=== PATIENT | female | born 1950 | race Caucasian/White ===

== ENCOUNTER → 2016-07-06 | Outpatient (REF) | payer MEDICARE, OTHER | LOC: M SFHCWAGY 13:29 | PROVIDERS: ATTEND Nurse Practitioner Family | DX: Z12.4 Encounter for screening for malignant neoplasm of cervix (principal); R87.610 Atypical squamous cells of undetermined significance on cytologic smear of cervix (ASC-US) | CPT/HCPCS: 87624; G0123 ==

== ENCOUNTER → 2016-07-06 | Outpatient (CLI) | payer MEDICARE, OTHER ==
--- NOTE | 2016-07-06 14:45 | REPMRS ---
Patient History The patient states she had a clinical breast exam in 06/2016. Patient is postmenopausal. Family history of colorectal cancer in sister at age 50 or over and prostate cancer in 4 brothers at age 50 or over. Taking estrogen for 10 years. Digital Woman Screen Mammo: July 06, 2016 - Exam #: [id number] Bilateral CC and MLO view(s) were taken. Technologist: Margie Conteh, Technologist Prior study comparison: July 02, 2015, digital woman screen mammo performed at [facility]. May 29, 2014, digital woman screen mammo performed at [facility]. May 05, 2013, digital woman screen mammo performed at [facility]. FINDINGS: There are scattered fibroglandular densities. There has been no change in the appearance of the mammogram from the prior studies. There is a mild amount of scattered fibroglandular density which is fairly symmetric. There is no interval development of dominant mass, architectural distortion, or clustered microcalcification suggestive of malignancy. ASSESSMENT: BI-RADS/ACR category 1 mammogram. Negative. Recommendation Routine screening mammogram in 1 year (for women over age 40). This mammogram was interpreted with the aid of an FDA-approved computer-aided dectection system. Electronically Signed By: Zaki Foster MD 07/06/16 0516
== END ==
LOC: M WHC 13:06
PROVIDERS: ATTEND Nurse Practitioner Family
DX: Z01.419 Encounter for gynecological examination (general) (routine) without abnormal findings (principal); Z12.31 Encounter for screening mammogram for malignant neoplasm of breast; Z78.0 Asymptomatic menopausal state; Z79.810 Long term (current) use of selective estrogen receptor modulators (SERMs); Z12.12 Encounter for screening for malignant neoplasm of rectum; Z80.0 Family history of malignant neoplasm of digestive organs; Z80.42 Family history of malignant neoplasm of prostate
CPT/HCPCS: 82270; 87624; G0101; G0123; G0202

== ENCOUNTER → 2016-07-28 | Outpatient (REF) | payer MEDICARE, OTHER ==
[2016-07-28 12:18] LABS: ALKALINE PHOSPHATASE 50 U/L (45-117); ALT/SGPT 30 U/L (12-78); ANION GAP 6 MEQ/L (8-16); AST/SGOT 19 U/L (15-37); BILIRUBIN,TOTAL 0.9 MG/DL (0.2-1.0); BLOOD UREA NITROGEN 17 MG/DL (7-18); CALCIUM LEVEL 9.5 MG/DL (8.8-10.2); CARBON DIOXIDE LEVEL 30 MEQ/L (21-32); CHLORIDE LEVEL 107 MEQ/L (98-107); CHOLESTEROL LEVEL 280 MG/DL (<200); CREATININE FOR GFR 0.87 MG/DL (0.55-1.02); GLOMERULAR FILTRATION RATE > 60.0 (>45); GLUCOSE, FASTING 101 MG/DL (80-110); POTASSIUM SERUM 4.7 MEQ/L (3.5-5.1); SODIUM LEVEL 143 MEQ/L (136-145); TOTAL PROTEIN 6.5 GM/DL (6.4-8.2); TRIGLYCERIDES LEVEL 166 MG/DL (<150)
== END ==
LOC: M SFHCPLAZ 08:40
PROVIDERS: ATTEND Internal Medicine
DX: Z00.00 Encounter for general adult medical examination without abnormal findings (principal); Z79.899 Other long term (current) drug therapy; E78.00 Pure hypercholesterolemia, unspecified

== ENCOUNTER → 2017-03-22 | Outpatient (REF) | payer MEDICARE, OTHER ==
[2017-03-22 11:38] LABS: MEAN CORPUSCULAR HEMOGLOBIN 33.4 pg (27.0-33.0); MEAN CORPUSCULAR HGB CONC 32.8 g/dl (32.0-36.5); MEAN CORPUSCULAR VOLUME 101.8 fl (80.0-96.0); RED CELL DISTRIBUTION WIDTH 12.3 % (11.5-14.5); WHITE BLOOD COUNT 3.9 10^3/uL (4.0-10.0)
[2017-03-22 12:12] LABS: ALBUMIN 4.1 GM/DL (3.2-5.2); ALBUMIN/GLOBULIN RATIO 1.41 (1.00-1.93); ALKALINE PHOSPHATASE 55 U/L (45-117); ALT/SGPT 36 U/L (12-78); ANION GAP 4 MEQ/L (8-16); AST/SGOT 25 U/L (15-37); BILIRUBIN,TOTAL 1.1 MG/DL (0.2-1.0); BLOOD UREA NITROGEN 15 MG/DL (7-18); CALCIUM LEVEL 8.9 MG/DL (8.8-10.2); CARBON DIOXIDE LEVEL 32 MEQ/L (21-32); CHLORIDE LEVEL 105 MEQ/L (98-107); CHOLESTEROL LEVEL 176 MG/DL (<200); CREATININE FOR GFR 0.82 MG/DL (0.55-1.02); GLOMERULAR FILTRATION RATE > 60.0 (>45); GLUCOSE, FASTING 90 MG/DL (80-110); POTASSIUM SERUM 4.2 MEQ/L (3.5-5.1); SODIUM LEVEL 141 MEQ/L (136-145); TRIGLYCERIDES LEVEL 111 MG/DL (<150)
== END ==
LOC: M SFHCPLAZ 08:02
PROVIDERS: ATTEND Internal Medicine
DX: E78.00 Pure hypercholesterolemia, unspecified (principal)

== ENCOUNTER → 2017-07-07 | Outpatient (CLI) | payer MEDICARE, OTHER | LOC: M WHC 12:54 | DX: Z12.31 Encounter for screening mammogram for malignant neoplasm of breast (principal); Z01.419 Encounter for gynecological examination (general) (routine) without abnormal findings (principal); Z78.0 Asymptomatic menopausal state; Z92.23 Personal history of estrogen therapy; Z12.12 Encounter for screening for malignant neoplasm of rectum | CPT/HCPCS: 77067 ==

== ENCOUNTER → 2017-11-09 | Outpatient (CLI) | payer MEDICARE, OTHER | LOC: M RAD 10:50 | DX: I87.303 Chronic venous hypertension (idiopathic) without complications of bilateral lower extremity (principal); M79.604 Pain in right leg; M79.605 Pain in left leg | CPT/HCPCS: 93970 ==

== ENCOUNTER → 2018-02-23 | Outpatient (REF) | payer MEDICARE, OTHER | LOC: M SFHCWAGY 15:33 | DX: R31.29 Other microscopic hematuria (principal) | CPT/HCPCS: 87086 ==

== ENCOUNTER → 2018-02-28 | Outpatient (CLI) | payer MEDICARE, OTHER | LOC: M WHC 14:15 | DX: N95.0 Postmenopausal bleeding (principal) | CPT/HCPCS: 76830 ==

== ENCOUNTER → 2018-03-01 | Outpatient (CLI) | payer MEDICARE, OTHER | LOC: M RAD 10:21 | DX: I87.2 Venous insufficiency (chronic) (peripheral) (principal) | CPT/HCPCS: 93971 ==

== ENCOUNTER → 2018-03-22 | Outpatient (REF) | payer MEDICARE, OTHER ==
[2018-03-22 12:59] LABS: ALBUMIN 3.9 GM/DL (3.2-5.2); ALKALINE PHOSPHATASE 57 U/L (45-117); ALT/SGPT 32 U/L (12-78); ANION GAP 8 MEQ/L (8-16); AST/SGOT 20 U/L (7-37); BILIRUBIN,TOTAL 0.6 MG/DL (0.2-1.0); BLOOD UREA NITROGEN 15 MG/DL (7-18); CALCIUM LEVEL 8.9 MG/DL (8.8-10.2); CARBON DIOXIDE LEVEL 27 MEQ/L (21-32); CHLORIDE LEVEL 106 MEQ/L (98-107); CHOLESTEROL LEVEL 195 MG/DL (<200); CREATININE FOR GFR 0.78 MG/DL (0.55-1.30); GLOMERULAR FILTRATION RATE > 60.0 (>45); GLUCOSE, FASTING 91 MG/DL (70-100); HDL CHOLESTEROL 67 MG/DL (>40); LDL CHOLESTEROL 103 MG/DL (<100); NON-HDL-C 128 MG/DL; POTASSIUM SERUM 4.4 MEQ/L (3.5-5.1); SODIUM LEVEL 141 MEQ/L (136-145); TOTAL PROTEIN 6.9 GM/DL (6.4-8.2); TRIGLYCERIDES LEVEL 123 MG/DL (<150)
== END ==
LOC: M SFHCPLAZ 09:05
DX: E78.00 Pure hypercholesterolemia, unspecified (principal)
CPT/HCPCS: 80053

== ENCOUNTER 2018-03-23 11:33 | Day surgery (SDC) | payer MEDICARE, OTHER ==
[~2018-03-23 11:33] MED LIST: KETOROLAC 60 MG/2 ML VIAL (J1885) As Ordered; LIDOCAINE 2% INJ 100 MG/5 ML SDV (FOR ANES.) As Ordered; MIDAZOLAM INJ 2 MG/2 ML VIAL (J2250) As Ordered; ONDANSETRON 4MG/2ML VIAL (J2405) As Ordered; PROPOFOL 200 MG/20 ML VIAL As Ordered; dexameTHASONE 4 MG/ML 1ML VIAL (J1100) As Ordered; fentaNYL 100 MCG/2 ML INJECTION (J3010) As Ordered
[2018-03-23 11:54] LABS: HEMATOCRIT 43.1 % (36.0-47.0); HEMOGLOBIN 14.4 g/dl (12.0-15.5); MEAN CORPUSCULAR HEMOGLOBIN 34.2 pg (27.0-33.0); MEAN CORPUSCULAR HGB CONC 33.4 g/dl (32.0-36.5); MEAN CORPUSCULAR VOLUME 102.4 fl (80.0-96.0); PLATELET COUNT, AUTOMATED 241 10^3/uL (150-450); RED BLOOD COUNT 4.21 10^6/uL (4.00-5.40); RED CELL DISTRIBUTION WIDTH 12.4 % (11.5-14.5); WHITE BLOOD COUNT 4.9 10^3/uL (4.0-10.0)
[2018-03-23] MEDS ORDERED: LIDOCAINE 1% MDV 20ML VIAL SQ (12:00)
[2018-03-23] MEDS ORDERED: LR 1,000 ML IV ×3 (12:00→15:00)
[2018-03-23] MEDS ORDERED: SILVER NITRATE APPLICATOR As Ordered (13:11)
[2018-03-23] MEDS ORDERED: PHENYLephrine HCL 500 MCG/5 ML (100MCG/ML) SYRINGE (J2370) As Ordered (14:00)
[2018-03-23] MEDS ORDERED: PERCOCET 5MG/325MG TAB PO (15:00)
[2018-03-23] MEDS ORDERED: ONDANSETRON 4MG/2ML VIAL (J2405) IV (15:00)
[2018-03-23] MEDS ORDERED: fentaNYL 100 MCG/2 ML INJECTION (J3010) IV (15:00)
== END 2018-03-23 15:55 | disposition home or self-care (01) ==
LOC: M SDC 11:33
DX: C54.1 Malignant neoplasm of endometrium (principal); N95.0 Postmenopausal bleeding; N85.8 Other specified noninflammatory disorders of uterus; E78.5 Hyperlipidemia, unspecified; F41.9 Anxiety disorder, unspecified; M54.9 Dorsalgia, unspecified; Z87.891 Personal history of nicotine dependence; Z78.0 Asymptomatic menopausal state; Z79.899 Other long term (current) drug therapy
CPT/HCPCS: 58558

== ENCOUNTER → 2018-04-13 | Outpatient (REF) | payer MEDICARE, OTHER | LOC: M LAB REF 04-14 18:30 | DX: J02.9 Acute pharyngitis, unspecified (principal) | CPT/HCPCS: 87070 ==

== ENCOUNTER → 2018-06-28 | Outpatient (REF) | payer MEDICARE, OTHER ==
[~2018-06-28] MED LIST changes: +ATOR1TAB21 PO; +COQ1200C2 PO; +GLUC1CAP10 PO; -KETOROLAC 60 MG/2 ML VIAL (J1885) As Ordered; -LIDOCAINE 2% INJ 100 MG/5 ML SDV (FOR ANES.) As Ordered; +MAGN250T7 PO; -MIDAZOLAM INJ 2 MG/2 ML VIAL (J2250) As Ordered; +MULT1TAB10 PO; +OMEG1CAP16 PO; -ONDANSETRON 4MG/2ML VIAL (J2405) As Ordered; -PROPOFOL 200 MG/20 ML VIAL As Ordered; +VAGI10TA; -dexameTHASONE 4 MG/ML 1ML VIAL (J1100) As Ordered; -fentaNYL 100 MCG/2 ML INJECTION (J3010) As Ordered
[2018-06-28 20:47] LABS: APPEARANCE, URINE CLEAR (CLEAR); BACTERIA, URINE AUTO 1+ (NEGATIVE); BILIRUBIN, URINE AUTO NEGATIVE (NEGATIVE); BLOOD, URINE BLOOD NEGATIVE (NEGATIVE); COLOR, URINE STRAW (YELLOW); GLUCOSE, URINE (UA) AUTO NEGATIVE (NEGATIVE); KETONE, URINE AUTO NEGATIVE (NEGATIVE); LEUKOCYTE ESTERASE, URINE AUTO NEGATIVE (NEGATIVE); NITRITE, URINE AUTO NEGATIVE (NEGATIVE); PROTEIN, URINE AUTO NEGATIVE (NEGATIVE); RBC, URINE AUTO 0 /HPF (0-3); SPECIFIC GRAVITY URINE AUTO 1.008 (1.002-1.035); SQUAMOUS EPITHELIAL CELL UR AU 0 /HPF (0-6); UROBILINOGEN, URINE AUTO 0.2 mg/dL (0.0-2.0); WBC, URINE AUTO 0 /HPF (0-3)
== END ==
LOC: M LAB REF 16:49
PROVIDERS: ATTEND Physician Assistant
DX: N39.0 Urinary tract infection, site not specified (principal)

== ENCOUNTER → 2018-07-08 | Outpatient (CLI) | payer MEDICARE, OTHER ==
--- NOTE | 2018-07-08 17:16 | REPMRS ---
Patient History The patient states she had a clinical breast exam in 06/2018. Patient is postmenopausal and has history of endometrial cancer at age 67. Family history of prostate cancer at age 50 or over in brother, prostate cancer at age 50 or over in brother, prostate cancer at age 50 or over in brother, prostate cancer at age 50 or over in brother, colorectal cancer at age 82 in sister, breast cancer at age 50 or over in paternal cousin. Took estrogen for 10 years beginning at age 55. Digital Woman Screen Mammo: July 08, 2018 - Exam #: [id number] Bilateral CC and MLO view(s) were taken. Technologist: Lanny Hopkins Technologist Prior study comparison: July 07, 2017, digital woman screen mammo performed at [facility]. July 06, 2016, digital woman screen mammo performed at [facility]. July 02, 2015, digital woman screen mammo performed at [facility]. FINDINGS: There are scattered fibroglandular densities. There has been no change in the appearance of the mammogram from the prior studies. There is a mild amount of scattered fibroglandular density which is fairly symmetric. There is no interval development of dominant mass, architectural distortion, or clustered microcalcification suggestive of malignancy. 3-D tomosynthesis shows no additional findings. Assessment: BI-RADS/ACR category 1 mammogram. Negative. Recommendation Routine screening mammogram of both breasts in 1 year (for women over age 40). This patient's Lifetime Breast Cancer RIsk is estimated at 5.6 %. This mammogram was interpreted with the aid of an FDA-approved computer-aided dectection system. Electronically Signed By: Zaki Foster MD 07/08/18 5994
== END ==
LOC: M WHC 13:23
PROVIDERS: ATTEND Nurse Practitioner Family
DX: Z12.31 Encounter for screening mammogram for malignant neoplasm of breast (principal); Z78.0 Asymptomatic menopausal state; Z80.0 Family history of malignant neoplasm of digestive organs; Z92.23 Personal history of estrogen therapy; Z91.89 Other specified personal risk factors, not elsewhere classified; N95.2 Postmenopausal atrophic vaginitis; Z90.710 Acquired absence of both cervix and uterus; Z12.12 Encounter for screening for malignant neoplasm of rectum
CPT/HCPCS: 77063; 77067; 82270; G0101; G0123

== ENCOUNTER → 2018-07-08 | Outpatient (REF) | payer MEDICARE, OTHER | LOC: M SFHCWAGY 13:39 | PROVIDERS: ATTEND Nurse Practitioner Family | DX: Z91.89 Other specified personal risk factors, not elsewhere classified (principal); N95.2 Postmenopausal atrophic vaginitis; Z90.710 Acquired absence of both cervix and uterus; Z12.12 Encounter for screening for malignant neoplasm of rectum ==

== ENCOUNTER → 2019-05-23 | Outpatient (CLI) | payer MEDICARE, OTHER ==
[2019-05-23 14:52] LABS: HEMATOCRIT 45.2 % (36.0-47.0); HEMOGLOBIN 14.8 g/dl (12.0-15.5); MEAN CORPUSCULAR HEMOGLOBIN 32.7 pg (27.0-33.0); MEAN CORPUSCULAR HGB CONC 32.7 g/dl (32.0-36.5); PLATELET COUNT, AUTOMATED 248 10^3/uL (150-450); RED BLOOD COUNT 4.52 10^6/uL (4.00-5.40); WHITE BLOOD COUNT 4.1 10^3/uL (4.0-10.0)
[2019-05-23 14:58] LABS: ALBUMIN 4.2 GM/DL (3.2-5.2); ALT/SGPT 32 U/L (12-78); BILIRUBIN,TOTAL 0.8 MG/DL (0.2-1.0); BLOOD UREA NITROGEN 13 MG/DL (7-18); CALCIUM LEVEL 9.5 MG/DL (8.8-10.2); CARBON DIOXIDE LEVEL 29 MEQ/L (21-32); CHLORIDE LEVEL 107 MEQ/L (98-107); CHOLESTEROL LEVEL 194 MG/DL (<200); CREATININE FOR GFR 0.92 MG/DL (0.55-1.30); GLOMERULAR FILTRATION RATE > 60.0 (>39); GLUCOSE, FASTING 98 MG/DL (70-100); HDL CHOLESTEROL 61 MG/DL (>40); LDL CHOLESTEROL 101 MG/DL (<100); NON-HDL-C 133 MG/DL; POTASSIUM SERUM 4.3 MEQ/L (3.5-5.1); SODIUM LEVEL 140 MEQ/L (136-145); TOTAL PROTEIN 7.2 GM/DL (6.4-8.2); TRIGLYCERIDES LEVEL 159 MG/DL (<150)
== END ==
LOC: M PLALAB 09:47
PROVIDERS: ATTEND Internal Medicine
DX: E78.00 Pure hypercholesterolemia, unspecified (principal); C54.1 Malignant neoplasm of endometrium

== ENCOUNTER → 2019-08-01 | Outpatient (REF) | payer MEDICARE, OTHER | LOC: M SFHCWAGY 12:39 | PROVIDERS: ATTEND Nurse Practitioner Family | DX: Z91.89 Other specified personal risk factors, not elsewhere classified (principal); Z08 Encounter for follow-up examination after completed treatment for malignant neoplasm; Z12.12 Encounter for screening for malignant neoplasm of rectum | CPT/HCPCS: 82270; G0101; G0123 ==

== ENCOUNTER → 2019-08-24 | Outpatient (CLI) | payer MEDICARE, OTHER ==
--- NOTE | 2019-08-24 14:57 | REPMRS ---
Patient History The patient states she had a clinical breast exam in June 2019. Family history of prostate cancer at age 50 or over in brother, prostate cancer at age 50 or over in brother, prostate cancer at age 50 or over in brother, prostate cancer at age 50 or over in brother, colorectal cancer at age 82 in sister, breast cancer at age 50 or over in paternal cousin. Took estrogen for 10 years beginning at age 55. Digital Woman Screen Mammo: August 24, 2019 - Exam #: [id number] Bilateral CC and MLO view(s) were taken. Technologist: Daly Hoffman Technologist Prior study comparison: July 08, 2018, bilateral digital woman screen mammo performed at [facility]. July 07, 2017, digital woman screen mammo performed at [facility]. July 06, 2016, digital woman screen mammo performed at [facility]. FINDINGS: There are scattered fibroglandular densities. There has been no change in the appearance of the mammogram from the prior studies. There is a mild amount of scattered fibroglandular density which is fairly symmetric. There is no interval development of dominant mass, architectural distortion, or grouped microcalcification suggestive of malignancy. 3-D tomosynthesis shows no additional findings. Assessment: BI-RADS/ACR category 1 mammogram. Negative Mammogram. Recommendation Routine screening mammogram of both breasts in 1 year (for women over age 40). This patient's Lifetime Breast Cancer Risk is estimated at 5.2 %. This mammogram was interpreted with the aid of an FDA-approved computer-aided dectection system. Electronically Signed By: Zaki Foster MD 08/24/19 3149
== END ==
LOC: M WHC 10:48
PROVIDERS: ATTEND Nurse Practitioner Family
DX: Z12.31 Encounter for screening mammogram for malignant neoplasm of breast (principal); Z80.3 Family history of malignant neoplasm of breast; Z80.0 Family history of malignant neoplasm of digestive organs; Z80.42 Family history of malignant neoplasm of prostate

== ENCOUNTER → 2020-05-27 | Outpatient (CLI) | payer SELFPAY | LOC: M LABSMTC 18:25 | PROVIDERS: ATTEND Pediatrics | DX: Z11.59 Encounter for screening for other viral diseases (principal) ==

== ENCOUNTER → 2020-06-19 | Outpatient (REF) | payer MEDICARE, OTHER ==
[2020-06-19 13:15] LABS: HEMATOCRIT 45.1 % (36.0-47.0); HEMOGLOBIN 14.9 g/dl (12.0-15.5); MEAN CORPUSCULAR HEMOGLOBIN 33.3 pg (27.0-33.0); MEAN CORPUSCULAR VOLUME 100.9 fl (80.0-96.0); PLATELET COUNT, AUTOMATED 217 10^3/uL (150-450); RED BLOOD COUNT 4.47 10^6/uL (4.00-5.40); WHITE BLOOD COUNT 4.4 10^3/uL (4.0-10.0)
[2020-06-19 13:49] LABS: ALBUMIN 4.1 GM/DL (3.2-5.2); ALT/SGPT 37 U/L (12-78); BLOOD UREA NITROGEN 18 MG/DL (7-18); CALCIUM LEVEL 9.3 MG/DL (8.8-10.2); CARBON DIOXIDE LEVEL 28 MEQ/L (21-32); CHLORIDE LEVEL 106 MEQ/L (98-107); CHOLESTEROL LEVEL 213 MG/DL (<200); CREATININE FOR GFR 0.89 MG/DL (0.55-1.30); GLOMERULAR FILTRATION RATE > 60.0 (>39); GLUCOSE, FASTING 101 MG/DL (70-100); HDL CHOLESTEROL 63 MG/DL (>40); LDL CHOLESTEROL 127 MG/DL (<100); NON-HDL-C 150 MG/DL; POTASSIUM SERUM 4.7 MEQ/L (3.5-5.1); SODIUM LEVEL 138 MEQ/L (136-145); TOTAL PROTEIN 6.8 GM/DL (6.4-8.2); TRIGLYCERIDES LEVEL 114 MG/DL (<150)
== END ==
LOC: M PLALAB 10:47
PROVIDERS: ATTEND Internal Medicine
DX: E78.00 Pure hypercholesterolemia, unspecified (principal); Z85.42 Personal history of malignant neoplasm of other parts of uterus
CPT/HCPCS: 36415; 80053; 80061; 85027; G0463

== ENCOUNTER → 2020-08-26 | Outpatient (CLI) | payer MEDICARE, OTHER ==
--- NOTE | 2020-08-26 13:15 | REPMRS ---
Patient History The patient states she had a clinical breast exam in August 2020. Family history of prostate cancer at age 50 or over in brother, prostate cancer at age 50 or over in brother, prostate cancer at age 50 or over in brother, prostate cancer at age 50 or over in brother, colorectal cancer at age 82 in sister, breast cancer at age 50 or over in paternal cousin. Took estrogen for 10 years beginning at age 55. 3D TOMOSYNTHESIS WAS PERFORMED. [facility] lifetime risk for breast cancer is 4.8%. Volpara breast density b. Digital Woman Screen Mammo: August 26, 2020 - Exam #: [id number] Bilateral CC and MLO view(s) were taken. Technologist: Karlo Franciscoologist Prior study comparison: August 24, 2019, bilateral digital woman screen mammo performed at [facility]. July 08, 2018, bilateral digital woman screen mammo performed at [facility]. FINDINGS: There are scattered fibroglandular densities. There has been no change in the appearance of the mammogram from the prior studies. There is a mild amount of residual fibroglandular tissue which is fairly symmetric. There is no interval development of dominant mass, architectural distortion, or clustered microcalcification suggestive of malignancy. Assessment: BI-RADS/ACR category 1 mammogram. Negative Mammogram. Recommendation Routine screening mammogram in 1 year (for women over age 40). This mammogram was interpreted with the aid of an FDA-approved computer-aided dectection system. Electronically Signed By: Anil Taylor MD 08/26/20 0259
== END ==
LOC: M WHC 11:25
PROVIDERS: ATTEND Nurse Practitioner Family
DX: Z01.419 Encounter for gynecological examination (general) (routine) without abnormal findings (principal); Z12.31 Encounter for screening mammogram for malignant neoplasm of breast; Z70.0 Counseling related to sexual attitude; Z92.23 Personal history of estrogen therapy
CPT/HCPCS: 77063; 77067; G0101; G0123

== ENCOUNTER → 2020-08-26 | Outpatient (REF) | payer MEDICARE, OTHER | LOC: M SFHCWAGY 18:50 | PROVIDERS: ATTEND Nurse Practitioner Family | DX: Z12.72 Encounter for screening for malignant neoplasm of vagina (principal); N95.2 Postmenopausal atrophic vaginitis ==

== ENCOUNTER → 2021-06-25 | Outpatient (CLI) | payer MEDICARE, OTHER | LOC: M PLALAB 12:14 | PROVIDERS: ATTEND Internal Medicine | DX: E78.00 Pure hypercholesterolemia, unspecified (principal); F41.8 Other specified anxiety disorders; H61.23 Impacted cerumen, bilateral; Z85.42 Personal history of malignant neoplasm of other parts of uterus; Z11.59 Encounter for screening for other viral diseases | CPT/HCPCS: 36415; 69209; 80053; 80061; 84443; 85025; G0463; G0472 ==

== ENCOUNTER → 2021-06-25 | Outpatient (REF) | payer MEDICARE, OTHER | LOC: M SFHCPLAZ 11:49 | PROVIDERS: ATTEND Internal Medicine | DX: E78.00 Pure hypercholesterolemia, unspecified (principal); F41.8 Other specified anxiety disorders; Z11.59 Encounter for screening for other viral diseases; Z85.42 Personal history of malignant neoplasm of other parts of uterus ==

== ENCOUNTER → 2021-10-22 | Outpatient (CLI) | payer MEDICARE, OTHER | LOC: M WHC 12:53 | PROVIDERS: ATTEND Internal Medicine | DX: Z12.31 Encounter for screening mammogram for malignant neoplasm of breast (principal); Z80.42 Family history of malignant neoplasm of prostate; Z80.0 Family history of malignant neoplasm of digestive organs; Z80.3 Family history of malignant neoplasm of breast ==

== ENCOUNTER → 2022-08-17 | Outpatient (CLI) | payer MEDICARE, OTHER ==
[2022-08-17 14:21] LABS: ALBUMIN 4.1 G/DL (3.2-5.2); ALKALINE PHOSPHATASE 59 U/L (46-116); ALT/SGPT 27 U/L (7.0-40); AST/SGOT 25 U/L (<34); BILIRUBIN,TOTAL 0.9 MG/DL (0.3-1.2); BLOOD UREA NITROGEN 14 MG/DL (9-23); CALCIUM LEVEL 9.4 MG/DL (8.3-10.6); CARBON DIOXIDE LEVEL 30 MMOL/L (20-31); CHLORIDE LEVEL 106 MMOL/L (98-107); CHOLESTEROL LEVEL 190 MG/DL (<200); CHOLESTEROL RISK RATIO 3.18 (<5); CREATININE FOR GFR 0.88 MG/DL (0.55-1.30); GLOMERULAR FILTRATION RATE > 60.0 (>39); GLUCOSE, FASTING 106 MG/DL (74-106); HDL CHOLESTEROL 59.6 MG/DL (>40); NON-HDL-C 130 MG/DL; POTASSIUM SERUM 4.3 MMOL/L (3.5-5.1); SODIUM LEVEL 141 MMOL/L (136-145); TOTAL PROTEIN 6.6 G/DL (5.7-8.2); TRIGLYCERIDES LEVEL 122 MG/DL (<150)
[2022-08-17 14:22] LABS: TOTAL 25(OH) VITAMIN D 27.2 NG/ML (20.0-100.0)
== END ==
LOC: M PLALAB 09:37
PROVIDERS: ATTEND Nurse Practitioner Adult Health
DX: M85.80 Other specified disorders of bone density and structure, unspecified site (principal); E78.00 Pure hypercholesterolemia, unspecified

== ENCOUNTER → 2022-11-04 | Outpatient (CLI) | payer MEDICARE, OTHER | LOC: M WHC 11:01 | PROVIDERS: ATTEND Nurse Practitioner Adult Health | DX: Z12.31 Encounter for screening mammogram for malignant neoplasm of breast (principal); M85.851 Other specified disorders of bone density and structure, right thigh ==

== ENCOUNTER → 2023-01-26 | Outpatient (REF) | payer MEDICARE, OTHER | LOC: M SFHCWAGY 13:21 | PROVIDERS: ATTEND Obstetrics & Gynecology | DX: Z12.4 Encounter for screening for malignant neoplasm of cervix (principal) | CPT/HCPCS: 87624; G0123 ==

== ENCOUNTER → 2023-08-10 | Outpatient (CLI) | payer MEDICARE, OTHER ==
[2023-08-10 13:35] LABS: BASO % 0.9 % (0.0-1.0); EOS # 0.2 10^3/uL (0.0-0.5); EOS % 3.9 % (0.0-3.0); HEMOGLOBIN 14.2 g/dl (12.0-15.5); LYMPH # 1.2 10^3/uL (1.5-5.0); LYMPH % 26.9 % (24.0-44.0); MEAN CORPUSCULAR HEMOGLOBIN 33.4 pg (27.0-33.0); MEAN CORPUSCULAR VOLUME 101.2 fl (80.0-96.0); MONO # 0.5 10^3/uL (0.0-0.8); MONO % 10.6 % (2.0-8.0); NEUTROPHILS # 2.7 10^3/uL (1.5-8.5); NEUTROPHILS % 57.5 % (36.0-66.0); PLATELET COUNT, AUTOMATED 212 10^3/uL (150-450); RED BLOOD COUNT 4.25 10^6/uL (4.00-5.40); WHITE BLOOD COUNT 4.6 10^3/uL (4.0-10.0)
[2023-08-10 13:44] LABS: ALBUMIN 3.9 G/DL (3.2-5.2); ALKALINE PHOSPHATASE 59 U/L (46-116); ALT/SGPT 24 U/L (7.0-40); AST/SGOT 15 U/L (<34); BILIRUBIN,TOTAL 0.7 MG/DL (0.3-1.2); BLOOD UREA NITROGEN 14 MG/DL (9-23); CALCIUM LEVEL 9.4 MG/DL (8.3-10.6); CARBON DIOXIDE LEVEL 30 MMOL/L (20-31); CHLORIDE LEVEL 106 MMOL/L (98-107); CHOLESTEROL LEVEL 177 MG/DL (<200); CHOLESTEROL RISK RATIO 3.36 (<5); CREATININE FOR GFR 0.79 MG/DL (0.55-1.30); GLOMERULAR FILTRATION RATE > 60.0 (>39); GLUCOSE, FASTING 98 MG/DL (74-106); HDL CHOLESTEROL 52.6 MG/DL (>40); LDL CHOLESTEROL 93.2 MG/DL (<100); NON-HDL-C 124.4 MG/DL; POTASSIUM SERUM 4.5 MMOL/L (3.5-5.1); SODIUM LEVEL 140 MMOL/L (136-145); TOTAL PROTEIN 6.2 G/DL (5.7-8.2); TRIGLYCERIDES LEVEL 156 MG/DL (<150)
[2023-08-10 13:48] LABS: HEMOGLOBIN A1c 5.3 % (4.0-6.0); TOTAL 25(OH) VITAMIN D 25.6 NG/ML (20.0-100.0)
== END ==
LOC: M PLALAB 09:32
PROVIDERS: ATTEND Nurse Practitioner Adult Health
DX: Z85.42 Personal history of malignant neoplasm of other parts of uterus (principal); E78.00 Pure hypercholesterolemia, unspecified; E55.9 Vitamin D deficiency, unspecified; Z79.899 Other long term (current) drug therapy

== ENCOUNTER → 2024-03-09 | Outpatient (REF) | payer MEDICARE, OTHER | LOC: M SFHCWAGY 14:52 | PROVIDERS: ATTEND Obstetrics & Gynecology | DX: Z12.72 Encounter for screening for malignant neoplasm of vagina (principal) | CPT/HCPCS: 87624; G0123 ==

== ENCOUNTER → 2024-03-09 | Outpatient (CLI) | payer MEDICARE, OTHER | LOC: M WHC 11:04 | PROVIDERS: ATTEND Obstetrics & Gynecology | DX: Z12.31 Encounter for screening mammogram for malignant neoplasm of breast (principal) ==

== ENCOUNTER → 2024-07-13 | Outpatient (CLI) | payer MEDICARE, OTHER | LOC: M PLALAB 13:12 | PROVIDERS: ATTEND Obstetrics & Gynecology | DX: Z13.71 Encounter for nonprocreative screening for genetic disease carrier status (principal); Z80.0 Family history of malignant neoplasm of digestive organs ==

== ENCOUNTER → 2024-08-24 | Outpatient (CLI) | payer MEDICARE, OTHER ==
[2024-08-24 14:21] LABS: ALBUMIN 4.2 G/DL (3.2-5.2); ALKALINE PHOSPHATASE 63 U/L (35-104); ALT/SGPT 26 U/L (7.0-40); AST/SGOT 21 U/L (<34); BILIRUBIN,TOTAL 1.1 MG/DL (0.3-1.2); BLOOD UREA NITROGEN 15 MG/DL (9-23); CALCIUM LEVEL 9.9 MG/DL (8.3-10.6); CARBON DIOXIDE LEVEL 28 MMOL/L (20-31); CHLORIDE LEVEL 106 MMOL/L (98-107); CHOLESTEROL LEVEL 211 MG/DL (<200); CHOLESTEROL RISK RATIO 3.77 (<5); CREATININE FOR GFR 0.88 MG/DL (0.55-1.30); GLOMERULAR FILTRATION RATE > 60.0 (>39); GLUCOSE, FASTING 102 MG/DL (74-106); HDL CHOLESTEROL 55.9 MG/DL (>40); LDL CHOLESTEROL 121.5 MG/DL (<100); NON-HDL-C 155.1 MG/DL; POTASSIUM SERUM 4.8 MMOL/L (3.5-5.1); SODIUM LEVEL 143 MMOL/L (136-145); TOTAL PROTEIN 7.1 G/DL (5.7-8.2); TRIGLYCERIDES LEVEL 168 MG/DL (<150)
[2024-08-24 14:22] LABS: HEMATOCRIT 44.8 % (36.0-47.0); MEAN CORPUSCULAR HEMOGLOBIN 33.5 pg (27.0-33.0); MEAN CORPUSCULAR HGB CONC 33.5 g/dl (32.0-36.5); PLATELET COUNT, AUTOMATED 247 10^3/uL (150-450); RED BLOOD COUNT 4.48 10^6/uL (4.00-5.40)
[2024-08-24 14:29] LABS: HEMOGLOBIN A1c 5.1 % (4.0-6.0)
== END ==
LOC: M PLALAB 10:04
PROVIDERS: ATTEND Nurse Practitioner Adult Health
DX: E78.00 Pure hypercholesterolemia, unspecified (principal)